=== PATIENT | female | born 1995 | race Hispanic/Latino ===

== ENCOUNTER 2018-10-05 16:03 | Emergency (ER) | payer OTHER, SELFPAY ==
[2018-10-05 17:24] LABS: Urine Blood TRACE (NEG); Urine Glucose TRACE (NEG); Urine Protein NEGATIVE (NEG); Urine pH 6.5 (5.0-7.0)
[2018-10-05 18:11] LABS: Absolute Lymphocytes (CBC) 1.6 K/uL (0.7-4.9); Absolute Monocytes 0.6 K/uL (0.1-1.3); Absolute Neutrophil 5.3 K/uL (1.8-8.0); Basophils % 0.4 % (0-1.3); Eosinophils % 0.5 % (0-4.4); Hematocrit 44.4 % (36.0-45.0); MPV 7.5 fL (7.6-11.3); Monocytes % 7.5 % (3.3-12.3); RBC Red Blood Cell Count 5.29 M/uL (3.86-4.86)
[2018-10-05 18:22] LABS: ALT/SGPT 15 U/L (12-78); AST/SGOT 8 U/L (15-37); Albumin 4.4 g/dL (3.4-5.0); Alkaline Phosphatase 82 U/L (45-117); BUN Blood Urea Nitrogen 10 mg/dL (7-18); Bicarbonate 27 mmol/L (21-32); Bilirubin Direct 0.1 mg/dL (0-0.2); Bilirubin Total 0.4 mg/dL (0.2-1.0); Glucose Level 67 mg/dL (74-106); Lipase 154 U/L (73-393); Potassium 3.6 mmol/L (3.5-5.1); Protein, Total 8.4 g/dL (6.4-8.2); Sodium Level 139 mmol/L (136-145)
--- NOTE | 2018-10-05 19:00 | RAD REPORT ---
EXAM DESCRIPTION: RAD - Abdomen W Erect - 10/05/2018 6:53 pm CLINICAL HISTORY: upper abdomen pain Pain COMPARISON: No comparisons FINDINGS: The bowel gas pattern is non-obstructive. No evidence of free air or pneumatosis. No suspi cious calcifications. No significant bony findings. Mild fecal retention. IMPRESSION: Mild fecal retention seen.
--- NOTE | 2018-10-05 19:03 | EDPHYS ---
Physician Documentation [facility] Name: Kaelyn Winn Age: 23 yrs Sex: Female : 1995 Arrival Date: 10/05/2018 Time: 16:07 Bed 7 Private MD: ED Physician Arpan Kim HPI: 10/05 17:30 This 23 yrs old Female presents to ER via Ambulatory with complaints of cp Abdominal Pain. 17:30 The patient presents with left side of abdomen. cp 17:30 Onset: The symptoms/episode began/occurred 6 day(s) ago. Associated signs and symptoms: cp Pertinent positives: constipation, Pertinent negatives: anorexia, blood in stools, diarrhea, dysuria, fever, vaginal discharge, vomiting. 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 - Social history:: Smoking status: Patient/guardian denies using tobacco. - Ebola Screening: : No symptoms or risks identified at this time. ROS: 17:35 Constitutional: Negative for body aches, chills, fever, poor PO intake. cp 17:35 Eyes: Negative for injury, pain, redness, and discharge. cp 17:35 ENT: Negative for drainage from ear(s), ear pain, sore throat, difficulty swallowing, difficulty handling secretions. 17:35 Neck: Negative for pain with movement, pain at rest, stiffness. 17:35 Cardiovascular: Negative for chest pain, palpitations. 17:35 Respiratory: Negative for cough, shortness of breath, wheezing. 17:35 Abdomen/GI: Positive for abdominal pain, constipation, Negative for vomiting, diarrhea, black/tarry stool, rectal bleeding. 17:35 Back: Negative for pain at rest, pain with movement. 17:35 : Negative for urinary frequency, vaginal bleeding, vaginal discharge. 17:35 Skin: Negative for rash. 17:35 Neuro: Negative for altered mental status, headache, weakness. 17:35 All other systems are negative. Exam: 17:42 Constitutional: The patient appears in no acute distress, alert, awake, comfortable, cp non-toxic, well developed, well nourished. 17:42 Head/Face: Normocephalic, atraumatic. cp 17:42 Eyes: Periorbital structures: appear normal, Conjunctiva: normal, no exudate, no injection, Sclera: no appreciated abnormality, Lids and lashes: appear normal, bilaterally. 17:42 ENT: External ear(s): are unremarkable, Nose: is normal, Mouth: Lips: moist, Oral mucosa: pink and intact, moist, Posterior pharynx: is normal, airway is patent, no erythema, no exudate. 17:42 Chest/axilla: Inspection: normal, Palpation: is normal, no crepitus, no tenderness. 17:42 Cardiovascular: Rate: normal, Rhythm: regular. 17:42 Respiratory: the patient does not display signs of respiratory distress, Respirations: normal, no use of accessory muscles, no retractions, no splinting, no tachypnea, labored breathing, is not present, Breath sounds: are clear throughout, no decreased breath sounds, no stridor, no wheezing. 17:42 Abdomen/GI: Inspection: abdomen appears normal, Bowel sounds: active, all quadrants, Palpation: soft, in all quadrants, mild abdominal tenderness, in the left upper quadrant and left lower quadrant, rebound tenderness, is not appreciated, voluntary guarding, is not appreciated, involuntary guarding, is not appreciated. 17:42 Back: CVA tenderness, is absent. 17:42 Skin: cellulitis, is not appreciated, no rash present. Vital Signs: 16:36 BP 120 / 76; Pulse 111; Resp 16; Temp 97.7; Pulse Ox 98% on R/A; Weight 50.35 kg; la1 Height 5 ft. 0 in. (152.40 cm); 17:18 BP 115 / 81; Pulse 92; Resp 18; Pulse Ox 100% on R/A; hj 18:25 BP 100 / 72; Pulse 89; Resp 18; Pulse Ox 100% on R/A; hj 19:15 BP 98 / 61; Pulse 75; Resp 17; Temp 98.3; Pulse Ox 99% on R/A; rr5 16:36 Body Mass Index 21.68 (50.35 kg, 152.40 cm) la1 MDM: 17:26 Patient medically screened. rekha 19:00 Test interpretation: by ED physician or midlevel provider: xrays of abdomen negative cp for obstruction or air/fluid levels. 19:01 Data reviewed: vital signs, nurses notes, lab test result(s), radiologic studies, plain cp films. 19:01 Counseling: I had a detailed discussion with the patient and/or guardian regarding: the cp historical points, exam findings, and any diagnostic results supporting the discharge/admit diagnosis, lab results, radiology results. Special discussion: Based on the patient's Hx, exam, and Dx evaluation, there is no indication for emergent surgery or inpatient Tx. It is understood by the patient/guardian that if the Sx's persist or worsen they need to return immediately for re-evaluation. 10/05 17:19 Order name: Urine Dipstick--Ancillary (enter results); Complete Time: 18:18 eb 10/05 18:19 Interpretation: Normal except: UBLD TRACE. cp 10/05 17:19 Order name: Urine --Ancillary (enter results); Complete Time: 18:18 eb 10/05 17:48 Order name: Basic Metabolic Panel cp 10/05 17:48 Order name: CBC with Diff cp 10/05 17:48 Order name: Creatinine for Radiology; Complete Time: 18:35 cp 10/05 17:48 Order name: Hepatic Function; Complete Time: 18:35 cp 10/05 18:59 Interpretation: Normal except: AST 8; TP 8.4; GLOB 4.0. cp 10/05 17:48 Order name: Lipase; Complete Time: 18:35 cp 10/05 17:48 Order name: IV Saline Lock; Complete Time: 17:54 cp 10/05 17:48 Order name: Labs collected and sent; Complete Time: 17:54 cp 10/05 17:50 Order name: Basic Metabolic Panel; Complete Time: 18:35 EDMS 10/05 19:00 Interpretation: Normal except: GLUC 67. cp 10/05 17:50 Order name: CBC with Automated Diff; Complete Time: 18:35 EDMS 10/05 17:50 Order name: Urine Dipstick-Ancillary (obtain specimen); Complete Time: 17:49 ms 10/05 18:35 Order name: XRAY Abdomen With Erect; Complete Time: 19:03 cp Administered Medications: No medications were administered Disposition: 10/05/18 19:02 Discharged to Home. Impression: Upper abdominal pain, unspecified, Constipation. - Condition is Stable. - Discharge Instructions: Abdominal Pain, Adult, Constipation, Adult. - Medication Reconciliation Form, Thank You Letter, Antibiotic Education, Prescription Opioid Use, Work release form form. - Follow up: Private Physician; When: 2 - 3 days; Reason: Worsening of condition. - Problem is new. - Symptoms have improved. - Notes: Recommend over the counter magnesium citrate as directed Addendum: 10/08/2018 08:35 Co-signature as Attending Physician, Arpan Kim MD I agree with the assessment and c aaron plan of care. Signatures: Dispatcher [employer] EDKS Arpan Kim MD MD cha Solis, Maria ms Attema, Lee, RN RN la1 Arpan Mcwilliams PA PA Ignacio Honeycutt, RN RN rr5 Corrections: (The following items were deleted from the chart) 10/05 19:02 19:02 10/05/2018 19:02 Discharged to Home. Impression: Upper abdominal pain, cp unspecified. Condition is Stable. Forms are Medication Reconciliation Form, Thank You Letter, Antibiotic Education, Prescription Opioid Use. Follow up: Private Physician; When: 2 - 3 days; Reason: Worsening of condition. Problem is new. Symptoms have improved. cp 19:16 19:02 10/05/2018 19:02 Discharged to Home. Impression: Upper abdominal pain, rr5 unspecified; Constipation. Condition is Stable. Discharge Instructions: Abdominal Pain, Adult, Constipation, Adult. Forms are Medication Reconciliation Form, Thank You Letter, Antibiotic Education, Prescription Opioid Use. Follow up: Private Physician; When: 2 - 3 days; Reason: Worsening of condition. Problem is new. Symptoms have improved. cp 10/06 06:33 10/05 17:30 The patient presents with abdominal pain in the left upper quadrant, cp cp
--- NOTE | 2018-10-05 19:03 | ER ---
Nurse's Notes [facility] Name: Kaelyn Winn Age: 23 yrs Sex: Female : 1995 Arrival Date: 10/05/2018 Time: 16:07 Bed 7 Private MD: Diagnosis: Upper abdominal pain, unspecified;Constipation Presentation: 10/05 16:37 Presenting complaint: Patient states: I have been having LLQ pain since Sunday. Pt la1 reports small stool with constipation, last normal BM one week ago. Transition of care: patient was not received from another setting of care. Onset of symptoms was October 05, 2018. Risk Assessment: Do you want to hurt yourself or someone else? Patient reports no desire to harm self or others. Initial Sepsis Screen: Does the patient meet any 2 criteria? No. Patient's initial sepsis screen is negative. Does the patient have a suspected source of infection? No. Patient's initial sepsis screen is negative. Care prior to arrival: None. 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 - Social history:: Smoking status: Patient/guardian denies using tobacco. - Ebola Screening: : No symptoms or risks identified at this time. Screenin:16 Abuse screen: Denies threats or abuse. Denies injuries from another. Nutritional hj screening: No deficits noted. Tuberculosis screening: No symptoms or risk factors identified. Fall Risk None identified. Assessment: 17:15 General: Appears in no apparent distress. uncomfortable, Behavior is calm, cooperative, hj appropriate for age. Pain: Complains of pain in abdomen. Neuro: Level of Consciousness is awake, alert, obeys commands, Oriented to person, place, time, situation, Appropriate for age. Cardiovascular: Capillary refill < 3 seconds Patient's skin is warm and dry. Respiratory: Airway is patent Respiratory effort is even, unlabored, Respiratory pattern is regular, symmetrical. GI: Abdomen is non-distended, Bowel sounds present X 4 quads. Abd is soft Reports lower abdominal pain. : No signs and/or symptoms were reported regarding the genitourinary system. EENT: No signs and/or symptoms were reported regarding the EENT system. Derm: No signs and/or symptoms reported regarding the dermatologic system. Musculoskeletal: No signs and/or symptoms reported regarding the musculoskeletal system. 17:43 Reassessment: provider in room;. hj 18:34 Reassessment: Patient and/or family updated on plan of care and expected duration. Pain hj level reassessed. Patient is alert, oriented x 3, equal unlabored respirations, skin warm/dry/pink. awaiting results and POC;. 19:15 Reassessment: Patient appears in no apparent distress at this time. Patient is alert, rr5 oriented x 3, equal unlabored respirations, skin warm/dry/pink. discharge instruction given and explained without complaints made. Patient states feeling better. Patient states symptoms have improved. Vital Signs: 16:36 BP 120 / 76; Pulse 111; Resp 16; Temp 97.7; Pulse Ox 98% on R/A; Weight 50.35 kg; la1 Height 5 ft. 0 in. (152.40 cm); 17:18 BP 115 / 81; Pulse 92; Resp 18; Pulse Ox 100% on R/A; hj 18:25 BP 100 / 72; Pulse 89; Resp 18; Pulse Ox 100% on R/A; hj 19:15 BP 98 / 61; Pulse 75; Resp 17; Temp 98.3; Pulse Ox 99% on R/A; rr5 16:36 Body Mass Index 21.68 (50.35 kg, 152.40 cm) la1 ED Course: 16:07 Patient arrived in ED. es 16:37 Triage completed. la1 16:37 Arm band placed on left wrist. la1 17:12 John Gutierrez, CHENCHO is Primary Nurse. hj 17:16 Patient has correct armband on for positive identification. Placed in gown. Bed in low hj position. Call light in reach. Side rails up X 1. Adult w/ patient. 17:25 Arpan Mcwilliams PA is PHCP. cp 17:25 Arpan Kim MD is Attending Physician. cp 17:50 Initial lab(s) drawn, by fl, sent to lab. Inserted saline lock: 22 gauge in right hj antecubital area, using aseptic technique. Blood collected. 18:54 XRAY Abdomen With Erect In Process Unspecified. EDMS 19:15 No provider procedures requiring assistance completed. IV discontinued, intact, rr5 bleeding controlled, No redness/swelling at site. Pressure dressing applied. Administered Medications: No medications were administered Outcome: 19:02 Discharge ordered by MD. cp 19:15 Discharged to home ambulatory, with family. rr5 19:15 Condition: stable 19:15 Discharge instructions given to patient, Instructed on discharge instructions, follow up and referral plans. Demonstrated understanding of instructions, follow-up care. 19:16 Patient left the ED. rr5 Signatures: Dispatcher [employer] EDMS Clarisa Cadet Lee, RN RN la1 John Gutierrez RN RN Arpan Collins PA PA cp Roque, Raymond, RN RN rr5
[2018-10-05 19:32] VITALS: BP 98/61; TEMP 98.3; O2SAT 99
== END 2018-10-05 19:16 | disposition home or self-care (01) ==
LOC: ER 16:03
DX: K59.00 Constipation, unspecified (principal); R10.10 Upper abdominal pain, unspecified
CPT/HCPCS: 36415; 74019; 80048; 80076; 81003; 81025; 83690; 85025; 99284